=== PATIENT | female | born 1985 | race Caucasian/White ===

== ENCOUNTER 2023-04-16 12:42 | Outpatient (AMB) | payer OTHER, SELFPAY ==
[2023-04-16 12:47] VITALS: BP 144/98; PULSE 130; O2SAT 99; BMI 31.9
--- NOTE | 2023-04-16 12:47 | MHC.PC.OV ---
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 PHQ9+THRIVE Allergies No Known Allergies Allergy (Verified 04/16/23 13:07) Medication List - Last Reconciled 04/16/23 by MIGUEL ÁNGEL Mercer buspirone 10 mg PO TID clonidine HCl 0.4 mg PO BID hydroxyzine pamoate 100 mg PO BID trazodone mg PO Tobacco use date assessed: 04/16/23 Dental Screening Dental Screen Date: 04/16/23 Did you have a dental visit in the last 12 months?: No Did you have a dental problem in the last 6 months where you did not have access to dental care?: No Was dental information given to patient?: Patient has dentist HPI HPI Comments History of Present Illness Details 37-year-old female new patient presents today to [facility]. Past medical history generalized anxiety disorder, hypertension. Patient reports that she has had multiple visits to the emergency room at [facility] for new seizure activity. Patient reports last seizure activity the beginning of last month, will request emergency room records. Patient reports not currently on any medications for seizures. Will refer to Neurology for further evaluation. 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 Patient reports has been sober x1 year following rehab admission. Patient does not currently follow with MAT clinic and she is not any medications for this. Patient currently following with medication provider Cheryl Cervantes for her anxiety medications such as buspirone, clonidine, hydroxyzine and trazodone. Patient tachycardic an appointment today heart rate 130, EKG completed showed sinus tachycardia. Likely related to patient feeling anxious or being at the doctor's. FORMERLY [facility], [facility] Medical History Insomnia History of substance abuse Family History Mother No problems noted. Father Myocardial infarction Paternal Aunt Hypertension Social History (Updated 04/16/23 @ 13:17 by Ayana O'Edyta, COMB TENDER) Household Members: None Housing: House Alcohol intake: current Alcohol intake frequency: a few times a week Patient Tobacco Use Status: Current everyday Tobacco user Tobacco use type: Cigarette Cigarette Packs Per Day: 1 Current occupational status: employed Cognitive needs: No Hearing needs: No Vision needs: No Questionnaire PHQ-9 Over the last 2 weeks, how often have you been bothered by any of the following problems? 1. Little interest or pleasure in doing things: not at all 2. Feeling down, depressed, or hopeless: not at all 3. Trouble falling or staying asleep, or sleeping too much: not at all 4. Feeling tired or having little energy: not at all 5. Poor appetite or overeating: not at all 6. Feeling bad about yourself - or that you are a failure or have let yourself or your family down: not at all 7. Trouble concentrating on things, such as reading the newspaper or watching television: not at all 8. Moving or speaking so slowly that other people could have noticed. Or the opposite - being so fidgety or restless that you have been moving around a lot more than usual: not at all 9. Thoughts that you would be better off or of hurting yourself in some way: not at all Total score: 0 Depression Screening Interpretation: Negative Depression Screening Done: Yes 42051 - PHQ-9 Billing: Yes Source: Developed by Drs. Alvaro De Dios, Jaqueline Moscoso, Chau Maldonado and colleagues, with an educational skylar from [employer]. Thrive Questionnaire Date Thrive assessed: 04/16/23 I am a: Patient What is your living situation today?: I have a steady place to live Within the past 12 months, did the food you bought not last and you didn't have the money to get more?: Never true Within the past 12 months, did you worry whether your food would run out before you got money to buy more?: Never true Do you have trouble paying for medicines?: No Do you have trouble getting transportation to medical appointments?: No Do you have trouble paying your heating and electricity bill?: No Do you have trouble taking care of your child, family member or friend?: No Do you have trouble with day-to-day activities such as bathing, preparing meals, shopping, managing finances, etc.?: No Are you currently unemployed and looking for a job?: No Are you interested in more education?: No Please select the resources that you would like help with: None AUDIT C Alcohol Use Questionnaire (AUDIT-C) 1. How often do you have a drink containing alcohol?: Never Total Score: 0 LYNNE-7 AMB Questionnaire LYNNE-7 Date LYNNE - 7 assessed: 04/16/23 Feeling nervous, anxious, or on edge: 2 = More than half the days Not being able to stop or control worryin = More than half the days Worrying too much about different things: 2 = More than half the days Trouble relaxin = More than half the days Being so restless that it is hard to sit still: 2 = More than half the days Becoming easily annoyed or irritable: 2 = More than half the days Feeling afraid as if something awful might happen: 2 = More than half the days Total LYNNE-7 score (0-4 normal; 5-9 mild; 10-14 moderate; 15-21 severe): 14 Source: Developed by Drs. Alvaro De Dios, Jaqueline Moscoso, Chau Maldonado and colleagues, with an educational skylar from [employer]. LYNNE-7 Assessment Billing LYNNE-7 Assessment Tool: LYNNE-7 Assessment 13574 Physical exam (Primary Care) Vital Signs: Last Vital Signs Pulse 130 H 04/16/23 12:47 BP 144/98 H 04/16/23 12:47 Pulse Ox 99 04/16/23 12:47 Oxygen Delivery Method Room Air 04/16/23 12:47 BMI result Body Mass Index 31.9 Tobacco/Smoking Status: Tobacco use Status Tobacco use date assessed 04/16/23 04/16/23 12:56 Patient Tobacco Use Status Current everyday Tobacco 04/16/23 13:17 Tobacco use type Cigarette 04/16/23 13:17 PHQ-9: PHQ-9 Score PHQ-9: Total score 0 04/16/23 13:29 Depression Screening Interpretation: Negative Thrive Assessment: Date of Thrive Assessment Date Thrive assessed 04/16/23 04/16/23 12:56 Assessment and Plan Assessment & Plan (1) Seizure: Code(s): R56.9 - Unspecified convulsions Plan: Referral entered to Neurology for further evaluation. Will request records from emergency room visit. (2) Hypertension: Code(s): I10 - Essential (primary) hypertension Plan: Follow low-salt diet and exercise If blood pressure remains elevated at physical appointment will consider starting patient on hypertension medication. (3) Generalized anxiety disorder: Code(s): F41.1 - Generalized anxiety disorder Plan: Continue on current medications and continue to follow with medication provider. Orders: Orders Comprehensive [place]. Panel Fast Today I10 - Essential (primary) hypertension Lipid Panel Today Z13.220 - Encounter for screening for lipoid disorders TSH reflex Free T4 Today Z13.29 - Encounter for screening for other suspected endocrine disorder Complete Blood Count Auto Diff Today Z13.0 - Encounter for screening for diseases of the blood and blood-forming organs and certain disorders involving the immune mechanism Referrals Neurology Referral R56.9 - Unspecified convulsions Coding Level of Care Code New Pt Level 4 (57527) Diagnoses Seizure R56.9 Hypertension I10 Generalized anxiety disorder F41.1 Additional Codes LYNNE-7 Assessment Billing - LYNNE-7 Assessment Tool: LYNNE-7 Assessment 00812 ([id number])
== END 2023-04-16 13:47 | disposition home or self-care (01) ==
PROVIDERS: PCP Nurse Practitioner Family; Visit Provider Nurse Practitioner Family
DX: R56.9 Unspecified convulsions (principal); I10 Essential (primary) hypertension; F41.1 Generalized anxiety disorder
CPT/HCPCS: 99204

== ENCOUNTER 2023-04-17 09:19 | Outpatient (REF) | payer OTHER, SELFPAY ==
[2023-04-17 09:52] LABS: MANUAL DIFF FLAG NO
[2023-04-17 10:17] LABS: Basophils Absolute Auto 0.1 X10*3/uL (0.0-0.2); Basophils Percent Auto 1.9 % (0-2); Eosinophils Absolute Auto 0.2 X10*3/uL (0.0-0.4); Eosinophils Percent Auto 3.3 % (0-4); Hematocrit 43.5 % (37.0-47.0); Hemoglobin 14.5 g/dl (12.0-16.0); Imm Gran Abs Auto 0.01 X10*3/uL (0.00-0.03); Imm Gran Pct Auto 0.2 % (0.0-0.4); Lymphocytes Absolute Auto 2.3 X10*3/uL (1.2-4.9); Lymphocytes Percent Auto 40.3 % (20-40); Mean Corpuscular HGB Conc 33.3 g/dl (31.0-35.0); Mean Corpuscular Hemoglobin 33.3 pg (27.0-33.0); Mean Platelet Volume 9.2 fL (9.4-12.3); Monocytes Absolute Auto 0.6 X10*3/uL (0.1-1.2); Monocytes Percent Auto 10.1 % (2-11); Neutrophils Absolute Auto 2.5 x10*3/uL (2.0-8.3); Neutrophils Percent Auto 44.2 % (45-73); Platelet Count 349 X10*3/uL (160-400); Red Blood Count 4.35 X10*6/uL (4.20-5.50); Red Cell Distribution Width 12.4 % (11.0-16.0); White Blood Count 5.7 X10*3/uL (4.8-10.8)
[2023-04-17 10:49] LABS: Alanine Aminotransferase 55 U/L (0-31); Albumin Level 4.5 g/dL (3.5-5.0); Alkaline Phosphatase 87 U/L (39-117); Anion Gap 17 (12-20); Aspartate Amino Transferase 98 U/L (5-31); Bilirubin Total 0.4 mg/dL (0.0-1.0); Blood Urea Nitrogen 6 mg/dL (9-16); Calcium 9.3 mg/dL (8.4-10.2); Carbon Dioxide 23 mmol/L (22-29); Chloride 104 mmol/L (96-108); Cholesterol 307 mg/dL (<200); Estimated Glomerular Filt Rate > 60; Glucose Fasting 91 mg/dL (60-99); HDL Cholesterol 63 mg/dL (>40); LDL Cholesterol Calculated 187 mg/dL (<100); Sodium 140 mmol/L (135-145); Total Protein 7.7 g/dL (6.5-8.0); Triglycerides 285 mg/dL (<150)
[2023-04-17 11:08] LABS: TSH reflex Free T4 0.57 uIU/mL (0.32-4.0)
== END 2023-04-17 09:20 | disposition home or self-care (01) ==
LOC: HO.LAB 09:19
PROVIDERS: PCP Nurse Practitioner Family; Visit Provider Nurse Practitioner Family
DX: I10 Essential (primary) hypertension (principal); Z13.0 Encounter for screening for diseases of the blood and blood-forming organs and certain disorders involving the immune mechanism; Z13.220 Encounter for screening for lipoid disorders; Z13.29 Encounter for screening for other suspected endocrine disorder
CPT/HCPCS: 36415; 80053; 80061; 84443; 85025

== ENCOUNTER 2023-05-04 08:42 | Outpatient (REF) | payer OTHER, SELFPAY ==
--- NOTE | ~2023-05-04 | US_ITS ---
EXAMINATION: US ABDOMEN COMPLETE CLINICAL INFORMATION: Elevation of levels of liver transaminase levels. COMPARISON: None available. TECHNIQUE: Real-time imaging of the abdominal viscera. FINDINGS: PANCREAS: Normal. ABDOMINAL AORTA: The proximal, mid, and distal segments are normal in caliber. INFERIOR VENA CAVA: Visualized portions are normal. LIVER: The liver is slightly enlarged, right lobe measuring 20 cm in length. The liver contour is normal. Parenchymal echogenicity is normal. No focal hepatic lesion. There is no intrahepatic biliary duct dilatation seen. GALLBLADDER: The gallbladder is contracted and not optimally evaluated. The patient is not nothing by mouth. No gallstones are seen. COMMON BILE DUCT: Normal in caliber measuring 0.4 cm in diameter. RIGHT KIDNEY: Normal. No hydronephrosis. No renal calculi or focal parenchymal lesions. The kidney measures 12.5 cm in maximum dimension. LEFT KIDNEY: Normal. No hydronephrosis. No renal calculi or focal parenchymal lesions. The kidney measures 11.5 cm in maximum dimension. SPLEEN: Normal. The spleen measures 11.1 cm in maximum dimension. FREE FLUID: None. US/US abdomen complete IMPRESSION: Slightly enlarged liver. Contracted gallbladder, not optimally evaluated. The patient is not nothing by mouth..
== END 2023-05-04 08:43 | disposition home or self-care (01) ==
LOC: HO.HMGCX 08:42
PROVIDERS: PCP Nurse Practitioner Family; Visit Provider Nurse Practitioner Family
DX: R74.01 Elevation of levels of liver transaminase levels (principal)
CPT/HCPCS: 76700

== ENCOUNTER 2023-06-16 13:13 | Outpatient (AMB) | payer OTHER, SELFPAY ==
--- NOTE | 2023-06-16 13:17 | A.OFFPC_ITS ---
Vital Signs 06/16/23 13:19 Height 5 ft 4 in Weight 193 lb 2 oz BMI 33.1 BP 128/84 Blood Pressure Location Lt brachial Position Sitting Respiration 17 Pulse 92 Pulse Source Palpation Intake Visit Reasons: Transfer of Care from [facility] Traffic Court Magistrate Required: No Accompanied by: Self / Same As Patient Allergies No Known Allergies Allergy (Verified 06/16/23 13:41) Medication List - Last Reconciled 06/16/23 by Eulogio Hernández PA-C buspirone 10 mg PO TID clonidine HCl 0.4 mg PO BID hydroxyzine pamoate 100 mg PO BID trazodone mg PO Tobacco use date assessed: 04/16/23 Dental Screening Dental Screen Date: 06/16/23 Did you have a dental visit in the last 12 months?: No Did you have a dental problem in the last 6 months where you did not have access to dental care?: No Was dental information given to patient?: Yes HPI Transfer of Care from [facility] HPI Details Patient is a 37-year-old female here today for annual physical/transfer care visit. This is the 1st time I am meeting this 37-year-old female with a past medical history significant for hyperlipidemia, obesity, history of substance use disorder, generalized anxiety disorder, hypertension. .. LYNNE: She reports her anxiety has been fairly well controlled though still suffers with issues with sleep which causes her mood issues started today. He is speaking with a mental health therapist. .. Hyperlipidemia: Most recent fasting lipid panel showing elevated total cholesterol and LDL. Patient does have family history coronary artery disease. PLAN: will Start statin therapy .. Alcohol use disorder: She does report drinking several drinks on weekends and sometimes during days. She does have elevated liver enzymes. Ultrasound abdomen showing enlarged liver. .. Substance use disorder (in remission ): Has been sober from opiates over a year now. 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 Will get phone number to [employer] senior web developer Vaccine: Up-to-date with COVID vaccine, decline flu, pneumonia and tetanus. Laboratory Tests 04/17/23 09:51 MCV 100.0 H Creatinine 0.81 AST 98 H ALT 55 H Cholesterol 307 H LDL Cholesterol, C alc 187 H HDL Cholesterol 63 PFSH Medical History (Updated 06/16/23 @ 14:15 by Eulogio Hernández PA-C) Insomnia History of substance abuse Family History Mother No problems noted. 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 Alvaro De Dios, Jaqueline Moscoso, Chau Maldonado and colleagues, with an educational skylar from [employer]. Review of Systems Const Denies body aches, Denies chills, Denies excessive sweating, Denies fatigue, Denies fever(s) and Denies headache(s) Eyes Denies blurry vision ENT Denies dysphagia, Denies vertigo, Denies dizziness, Denies headache(s), Denies hearing loss and Denies tinnitus Card Denies chest pain, Denies chest pain with activity, Denies syncope, Denies irregular heart rhythm and Denies dyspnea Resp Denies chest congestion, Denies cough, Denies hemoptysis, Denies dyspnea and Denies wheezing GI Denies abdominal pain, Denies melena, Denies hematochezia, Denies coffee ground emesis, Denies dysphagia, Denies diarrhea, Denies nausea and Denies vomiting Denies urinary frequency, Denies dysuria, Denies urinary hesitancy and Denies urinary urgency Musc Denies arthralgias, Denies limited range of motion, Denies muscle cramps and De nies muscle weakness Skin/Breast Denies rash and Denies skin ulcer Neuro Denies Abnormal speech present, Denies confusion, Denies vertigo, Denies dizz iness, Denies syncope, Denies headache(s), Denies memory loss and Denies seizure-like activity Psych Denies anxiety, Denies confusion, Denies depression, Denies memory loss, Denies panic attacks and Denies paranoia Endo Denies excessive sweating, Denies fatigue, Denies flushing, Denies polydipsia and Denies polyuria Aller/Immun Denies wheezing Physical exam (Primary Care) Vital Signs: Last Vital Signs Pulse 92 06/16/23 13:19 Resp 17 06/16/23 13:19 BP 128/84 06/16/23 13:19 BMI result Body Mass Index 33.1 BMI Assessment/Plan discussion: High Tobacco/Smoking Status: Tobacco use Status Tobacco use date assessed 04/16/23 06/16/23 13:17 Patient Tobacco Use Status Current everyday Tobacco 06/16/23 13:49 Tobacco use type Cigarette 06/16/23 13:49 e-Cigarette/Vaping Use Former Use 06/16/23 13:49 Are you ready to quit: No Tobacco cessation counseling provided: Yes Items discussed: Nicotine replacement and QuitWorks Relapse Prevention: discussed the importance of a supportive environment, discussed extending NRT, discussed negative mood or depression after quitting, weight gain after smoking is common and discussed dietary, exercise and/or lifestyle changes Number of minutes spent counselin CPT code: 44623 - 4-10 Minutes Thrive Assessment: Date of Thrive Assessment Date Thrive assessed 04/16/23 06/16/23 13:17 Const Other: Obese General: cooperative, comfortable, no acute distress, alert and awake; No confusion Orientation/consciousness: oriented to person, oriented to place, patient oriented x3 and No confusion HENMT Head: Yes normocephalic Ears: external ears normal and TM's normal bilaterally Face and sinus: No sinus tenderness Mouth: Normal oral and palatal mucosa present and tongue normal Teeth and gingiva: dentition normal and gingiva normal Throat: Yes posterior oropharynx normal, Yes tonsils normal and Yes uvula midline Eyes Conjunctivae: conjunctivae normal Sclerae: sclerae normal Pupils: Equal, round and reactive pupils present EOM: EOMs intact bilaterally Direct Ophthalmoscopy: No no photophobia Neck Neck: Yes no lymphadenopathy, No tender and Yes no JVD Thyroid: Thyroid normal Carotids: no bruits Chest Chest palpation & inspection: no tenderness Resp Effort & Inspection: normal respiratory effort, no audible wheezes, not labored and no stridor Auscultation: no crackles, no rales, no rhonchi and no wheezes Cardio Jugular venous distension: no JVD Rate: regular rate, not bradycardic and not tachycardic Rhythm: regular rhythm Bruits: no carotid bruits Peripheral pulses: Peripheral pulses 2+ throughout GI Inspection: Yes normal to inspection, No abdominal wall ecchymosis and No visible herniation Palpation (GI): Soft to palpation, nontender, no guarding, not rigid and No hepatosplenomegaly present Auscultation: normoactive bowel sounds General: Yes no CVA tenderness Back/Spine/Pelvis Back: no CVA tenderness and No back tenderness Cervical Spine: cervical ROM normal Thoracic/Lumbar Spine: thoracic and lumbar spine normal to inspection, straight leg raise negative bilaterally, No thoraco-lumbar ROM limited and No lumbar spinal tenderness Skin Lesions: no lesions Rashes: no rashes Wounds: no wounds Neuro General: oriented to person, oriented to place, patient oriented x3, CN's II-XI intact bilaterally and No confusion Cranial nerves: Yes Equal, round and reactive pupils present and Yes Normal accommodation reflex present Cognition (Neuro): normal cognition Speech: No Abnormal speech present Gait exam (Neuro): Normal gait present Motor exam (neuro): 5/5 motor strength present throughout Extrem Right upper extremity: full ROM; no cyanosis Left upper extremity: full ROM; no cyanosis Right lower extremity: no edema Left lower extremity: no edema Psych Appearance: grossly normal Mental Status: mental status grossly normal Affect: normal affect Attitude: cooperative Thought process: Normal thought process present Assessment and Plan Assessment & Plan (1) Annual physical exam: Code(s): Z00.00 - Encounter for general adult medical examination without abnormal findings (2) Tobacco dependence: Code(s): F17.200 - Nicotine dependence, unspecified, uncomplicated Plan: Patient does understand she needs to quit smoking. Does have family history of coronary artery disease in her own cholesterol is elevated. Patient willing to try nicotine gum to help her with nicotine cravings (3) Hypertension: Code(s): I10 - Essential (primary) hypertension Qualifiers: Hypertension type: primary hypertension Qualified Code(s): I10 - Essential (primary) hypertension Plan: Patient's blood pressure acceptable today in office. She continues with clonidine 4 mg b.i.d.. She will try and from and better eating habits Advised to monitor blood pressure at home with goal blood pressure to be below 140/90 (4) Generalized anxiety disorder: Code(s): F41.1 - Generalized anxiety disorder Plan: Patient does follow a mental health therapist. Continues on buspirone with decent affect on her anxiety during the day. She still has trouble with sleep and for reports trazodone has not been affective. Will transition to Seroquel 25 mg before bed (5) Hyperlipidemia: Code(s): E78.5 - Hyperlipidemia, unspecified Qualifiers: Hyperlipidemia type: mixed hyperlipidemia Qualified Code(s): E78.2 - Mixed hyperlipidemia Plan: Patient's most recent fasting lipid panel showing elevated total cholesterol of 300 and LDL in the 170s. She does have family history coronary artery disease and currently she is smoker. She is willing to start statin therapy. Will recheck lipid panel in 2 months. Goal LDL to be below 130 (6) Insomnia: Code(s): G47.00 - Insomnia, unspecified Qualifiers: Insomnia type: primary Qualified Code(s): F51.01 - Primary insomnia Plan: As per HPI patient has been having trouble sleeping. Trazodone has not been as effective. She will like to transition to different medication. Will trial Seroquel 25 mg before bed. (7) Obese: Code(s): E66.9 - Obesity, unspecified Qualifiers: Body mass index: BMI 33.0-33.9 Obesity classification: adult class 1 (BMI 30 - 34.9) Obesity type: due to excess calories Serious obesity comorbidity presence: without serious comorbidity Qualified Code(s): E66.09 - Other obesity due to excess calories; Z68.33 - Body mass index [BMI] 33.0-33.9, adult Plan: Patient does understand her BMI is over 30 will work being more physically active and adapting to better eating habits to reduce her weight (8) History of substance abuse: Code(s): F19.11 - Other psychoactive substance abuse, in remission Plan: Has had a history of opiate dependency. Has been sober now from opiates for 2 years. Orders: Orders Lipid Panel Today E78.2 - Mixed hyperlipidemia Comprehensive [place]. Panel Fast Today I10 - Essential (primary) hypertension Complete Blood Count no Diff Today I10 - Essential (primary) hypertension Medications: New quetiapine (Seroquel) 25 mg PO BEDTIME 30 days 30 tabs 1RF F41.1 - Generalized anxiety disorder, G47.00 - Insomnia, unspecified nicotine (polacrilex) 2 mg buccal Q2H 15 days PRN 110 ea 0RF nicotine cravings F17.200 - Nicotine dependence, unspecified, uncomplicated simvastatin 20 mg PO DAILY 30 days 30 tabs 3RF E78.2 - Mixed hyperlipidemia Coding Level of Care Code Est Pt Prev Care [id number]([id number]) Diagnoses Annual physical exam Z00.00 Tobacco dependence F17.200 Primary hypertension I10 Hypertension type: primary hypertension Generalized anxiety disorder F41.1 Mixed hyperlipidemia E78.2 Hyperlipidemia type: mixed hyperlipidemia Primary insomnia F51.01 Insomnia type: primary Class 1 obesity due to excess calories without serious comorbidity with body mass index (BMI) of 33.0 to 33.9 in adult E66.09; Z68.33 Body mass index: BMI 33.0-33.9 Obesity classification: adult class 1 (BMI 30 - 34.9) Obesity type: due to excess calories Serious obesity comorbidity presence: without serious comorbidity History of substance abuse F19.11 Additional Codes Vital Signs *Quality* - CPT code: 88572 - 4-10 Minutes ([id number])
[2023-06-16 13:19] VITALS: BP 128/84; PULSE 92; RESP 17; BMI 33.1
== END 2023-06-16 14:10 | disposition home or self-care (01) ==
PROVIDERS: PCP Nurse Practitioner Family; Visit Provider Physician Assistant
DX: Z00.00 Encounter for general adult medical examination without abnormal findings (principal); F19.11 Other psychoactive substance abuse, in remission; F17.210 Nicotine dependence, cigarettes, uncomplicated; I10 Essential (primary) hypertension; F41.1 Generalized anxiety disorder; E78.2 Mixed hyperlipidemia; F51.01 Primary insomnia; E66.09 Other obesity due to excess calories; Z68.33 Body mass index [BMI] 33.0-33.9, adult
CPT/HCPCS: 99395; 99406

== ENCOUNTER 2023-06-18 12:45 | Outpatient (AMB) | payer OTHER, SELFPAY ==
--- NOTE | 2023-06-18 12:51 | MHC.OFFVIS ---
Intake Vital Signs 06/18/23 12:52 Height 5 ft 4 in Weight 197 lb 6 oz BMI 33.9 BP 142/90 H Blood Pressure Location Rt brachial Position Sitting Respiration 16 Pulse 105 H Pulse Source Pulse Oximeter Pulse Oximetry (%) 97 Oxygen Delivery Method Room Air Intake Visit Reasons: INP-Convulsions - Confirmed Intake Note: Pt presents to the office for new pt evaluation for convulsions. 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 Her first episode was 3 years ago- she was in [place] and got into the car and then was witnessed to have generalized movements, loss of awareness, consciousness. It lasted few minutes , when she woke up the ambulance were there. She was told that her episode was due to dehydration . she was tired for few days after the episode. The next event was after 6 mths while she was at work. 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 she did not go to the hospital. Her 3 rd episode was similar - was stressed. She went to [facility] ER.SHe was discharged and asked follow up with PCP> she had another episode 3 months ago- she was sitting in a chair .she bites her tongue during these episodes.she drinks alcohol - 2 drinks 3-4 times a week. she does not drive - 4-5 months ago . she has h/o of snorting HEROIN,COCAINE. she stopped 2 years ago after her first episode. she is not sure if she had used it prior to her first episode. stress and sleep deprivation triggers the episodes she denies nay fh/o seizures,denies head injury [facility] Medical History Anxiety Insomnia History of substance abuse Family History Mother No problems noted. 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 Cognitive needs: No Hearing needs: No Vision needs: No Physical Exam Vital Signs: Last Vital Signs Pulse 105 H 06/18/23 12:52 Resp 16 06/18/23 12:52 BP 142/90 H 06/18/23 12:52 Pulse Ox 97 06/18/23 12:52 Oxygen Delivery Method Room Air 06/18/23 12:52 BMI result Body Mass Index 33.9 Const General: cooperative, healthy appearing and comfortable Nutritional Appearance: average body habitus Orientation/consciousness: patient oriented x3 Limitations: no limitations Eyes Pupils: Equal, round and reactive pupils present Neuro General: patient oriented x3, gait normal, tone normal, moves all extremities and no focal motor deficits Cranial nerves: Yes Facial sensation intact/muscles of mastication intact, Yes Equal, round and reactive pupils present, Yes Bilaterally intact EOM present, Yes Nystagmus not present, Yes Normal facial strength present, Yes Midline tongue present and Yes Symmetric palate elevation present Cognition (Neuro): normal cognition Gait exam (Neuro): Normal gait present Motor exam (neuro): 5/5 motor strength present throughout and Normal motor muscle tone present throughout Deep tendon reflexes (DTR's): Right triceps reflex intensity grade: 2+, Left triceps reflex intensity grade: 2+, Rt Biceps (C5, C6): 2+, Left biceps reflex intensity grade: 2+, Right brachioradialis reflex intensity grade: 2+, Left brachioradialis reflex intensity grade: 2+, Right patellar reflex intensity grade: 2+ and Left patellar reflex intensity grade: 2+ Coordination: [id number] test normal Assessment & Plan Assessment & Plan (1) Seizure: Comment: new onset Code(s): R56.9 - Unspecified convulsions Plan I will evaluate her with MRI EEG and trial her on tegretol XR 200mg bid Seizure precautions were discussed NO DRIVING Orders: Orders MR head/brain wo con Today R56.9 - Unspecified convulsions EEG electroencephalogram Today R56.9 - Unspecified convulsions Medications: New carbamazepine ER (Tegretol XR) 200 mg PO BID 60 tabs 1RF Coding Level of Care Code New Pt Level 4 (38149) Diagnoses Seizure R56.9
[2023-06-18 12:52] VITALS: BP 142/90; PULSE 105; RESP 16; O2SAT 97; BMI 33.9
== END 2023-06-18 13:22 | disposition home or self-care (01) ==
PROVIDERS: PCP Nurse Practitioner Family; Visit Provider Psychiatry & Neurology Neurology
DX: R56.9 Unspecified convulsions (principal)
CPT/HCPCS: 99204

== ENCOUNTER → 2023-06-18 12:45 | Outpatient (BNVA) | payer OTHER, SELFPAY | PROVIDERS: PCP Nurse Practitioner Family; Visit Provider Psychiatry & Neurology Neurology | DX: R56.9 Unspecified convulsions (principal) | CPT/HCPCS: 99202 ==

== ENCOUNTER 2023-07-07 07:51 | Outpatient (REF) | payer OTHER, SELFPAY ==
--- NOTE | 2023-07-07 08:05 | EEG_ITS ---
FINDINGS: Waking background activity consists of a moderate voltage 8 to 9 hertz posterior alpha frequency intermixed anteriorly with low voltage fast frequencies. Photic stimulation is without activation. Drowsiness is characterized by diffuse slowing. No sleep stages are identified. No focal, lateralizing, or paroxysmal discharges are seen. IMPRESSION: This awake and drowsy EEG is within normal limits. MD LOCO Cochran/TESS / [phone]
== END 2023-07-07 07:52 | disposition home or self-care (01) ==
LOC: HO.NEURO 07:51
PROVIDERS: PCP Physician Assistant; Visit Provider Psychiatry & Neurology Neurology
DX: R56.9 Unspecified convulsions (principal)
CPT/HCPCS: 95816

== ENCOUNTER 2023-07-20 09:35 | Outpatient (AMB) | payer OTHER, MEDICAID, SELFPAY ==
--- NOTE | 2023-07-20 09:40 | A.OFFVIS_ITS ---
Intake Vital Signs 07/20/23 09:41 Height 5 ft 4 in Weight 196 lb 6 oz BMI 33.7 BP 128/76 Blood Pressure Location Rt brachial Position Sitting Respiration 16 Pulse 98 Pulse Source Pulse Oximeter Pulse Oximetry (%) 99 Oxygen Delivery Method Room Air Intake Visit Reasons: 1 mo f/u Convulsion - Confirmed Intake Note: Pt presents to the office for a one month follow up for s/p convulsion. Janitor And Cleaner Required: No Allergies No Known Allergies Allergy (Verified 07/20/23 09:40) Medication List - Last Reconciled 07/20/23 by Naya Marinelli MD buspirone 10 mg PO TID carbamazepine ER (Tegretol XR) 400 mg (2 x 200 mg) PO BID clonidine HCl 0.4 mg PO BID hydroxyzine pamoate 100 mg PO BID nicotine (polacrilex) 2 mg buccal Q2H PRN 15 days quetiapine (Seroquel) 25 mg PO BEDTIME 30 days simvastatin 20 mg PO DAILY 30 days HPI HPI Comments History of Present Illness Details 37y/o female comes for follow up of new onset seizures.Her EEG awake and drowsy was normal . MRI - is scheduled for next week. No driving Doing Ok on tegretol Previous history-Her first episode was 3 years ago- she was in [place] and got into the car and then was witnessed to have generalized movements, loss of awareness, consciousness. It lasted few minutes , when she woke up the ambulance were there. She was told that her episode was due to dehydration . she was tired for few days after the episode. The next event was after 6 mths while she was at work. 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 she did not go to the hospital. Her 3 rd episode was similar - was stressed. She went to [facility] ER.SHe was discharged and asked follow up with PCP> she had another episode 3 months ago- she was sitting in a chair .she bites her tongue during these episodes.she drinks alcohol - 2 drinks 3-4 times a week. she does not drive - 4-5 months ago . she has h/o of snorting HEROIN,COCAINE. she stopped 2 years ago after her first episode. she is not sure if she had used it prior to her first episode. stress and sleep deprivation triggers the episodes she denies nay fh/o seizures,denies head injury [facility] Medical History Anxiety Insomnia History of substance abuse Family History Mother No problems noted. 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 Cognitive needs: No Hearing needs: No Vision needs: No Physical Exam Vital Signs: Last Vital Signs Pulse 98 07/20/23 09:41 Resp 16 07/20/23 09:41 BP 128/76 07/20/23 09:41 Pulse Ox 99 07/20/23 09:41 Oxygen Delivery Method Room Air 07/20/23 09:41 BMI result Body Mass Index 33.7 Const General: cooperative, healthy appearing and comfortable Nutritional Appearance: average body habitus Orientation/consciousness: patient oriented x3 Limitations: no limitations Eyes Pupils: Equal, round and reactive pupils present Neuro General: patient oriented x3, gait normal, tone normal, moves all extremities and no focal motor deficits Cranial nerves: Yes Facial sensation intact/muscles of mastication intact, Yes Equal, round and reactive pupils present, Yes Bilaterally intact EOM present, Yes Nystagmus not present, Yes Normal facial strength present, Yes Midline tongue present and Yes Symmetric palate elevation present Cognition (Neuro): normal cognition Gait exam (Neuro): Normal gait present Motor exam (neuro): 5/5 motor strength present throughout and Normal motor muscle tone present throughout Coordination: [id number] test normal Assessment & Plan Assessment & Plan (1) Seizure: Comment: new onset Code(s): R56.9 - Unspecified convulsions Plan Discussed EEG results Increase tegretol XR 400mg bid. will check her CBC CMP MRI brain Seizure precautions were discussed NO DRIVING Orders: Orders 2 Complete Blood Count Auto Diff Today R56.9 - Unspecified convulsions Comprehensive Met. Panel Today R56.9 - Unspecified convulsions Medications: Changed From carbamazepine ER (Tegretol XR) 200 mg PO BID 60 tabs 1RF To carbamazepine ER (Tegretol XR) 400 mg (2 x 200 mg) PO BID 120 tabs 1RF Coding Level of Care Code Est Pt Level 4 (44187) Diagnoses Seizure R56.9
[2023-07-20 09:41] VITALS: BP 128/76; PULSE 98; RESP 16; O2SAT 99; BMI 33.7
== END 2023-07-20 09:59 | disposition home or self-care (01) ==
PROVIDERS: PCP Nurse Practitioner Family; Visit Provider Psychiatry & Neurology Neurology
DX: R56.9 Unspecified convulsions (principal)
CPT/HCPCS: 99214

== ENCOUNTER → 2023-07-20 09:35 | Outpatient (BNVA) | payer OTHER, SELFPAY | PROVIDERS: PCP Nurse Practitioner Family; Visit Provider Psychiatry & Neurology Neurology | DX: R56.9 Unspecified convulsions (principal) | CPT/HCPCS: 99212 ==

== ENCOUNTER 2023-08-17 13:49 | Outpatient (AMB) | payer OTHER, SELFPAY ==
[2023-08-17 13:53] VITALS: BP 142/96; PULSE 80; BMI 33.0
--- NOTE | 2023-08-17 13:53 | A.OFFPC_ITS ---
Vital Signs 08/17/23 13:53 Height 5 ft 4 in Weight 192 lb 6 oz BMI 33.0 BP 142/96 H Blood Pressure Location Lt brachial Position Sitting Pulse 80 Pulse Source Palpation Oxygen Delivery Method Room Air Intake Visit Reasons: f/u HTN/ HLD Intake Note: The patient is here for follow-up regarding HTN and HLD. Today, the patient has been experiencing a sore throat, cough with phlegm for the past week, and is requesting antibiotics. Environmental Engineering Aide Required: No Accompanied by: Self / Same As Patient Allergies No Known Allergies Allergy (Verified 08/17/23 14:12) Medication List - Last Reconciled 08/17/23 by Eulogio Hernández PA-C buspirone 10 mg PO TID carbamazepine ER (Tegretol XR) 400 mg (2 x 200 mg) PO BID clonidine HCl 0.4 mg PO BID hydroxyzine pamoate 100 mg PO BID nicotine (polacrilex) 2 mg buccal Q2H PRN 15 days quetiapine (Seroquel) 25 mg PO BEDTIME 30 days simvastatin 20 mg PO DAILY 30 days Tobacco use date assessed: 08/17/23 Dental Screening Dental Screen Date: 08/17/23 Did you have a dental visit in the last 12 months?: Yes Did you have a dental problem in the last 6 months where you did not have access to dental care?: No Was dental information given to patient?: Patient has dentist HPI f/u HTN/ HLD HPI Details Patient is a 37-year-old female here today for annual physical/transfer care visit. This is the 2nd time I am meeting this 37-year-old female with a past medical history significant for hyperlipidemia, obesity, history of substance use disorder, generalized anxiety disorder, hypertension. Concerns--> reports she has been suffering with a sore throat over the last 5 days. Has been taking [id number] cough cold medication without much relief. Today throat swab in office negative for strep today. .. LYNNE: She reports her anxiety has been fairly well controlled . At last visit we started Seroquel 25 mg at bedtime which has been helpful for sleep. She is interested in higher dose .. Hyperlipidemia: Unfortunately has not been able to get labs done, promises to do so in near future fasting. y .. Alcohol use disorder: She does report drinking several drinks on weekends and sometimes during days. She does have elevated liver enzymes. Ultrasound abdomen showing enlarged liver. .. Substance use disorder (in remission ): Has been sober from opiates over a year now. [facility] Medical History Anxiety Insomnia History of substance abuse Family History Mother No problems noted. 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 Alvaro De Dios, Jaqueline Moscoso, Chau Maldonado and colleagues, with an educational skylar from [email or web address]. Review of Systems Const Denies headache(s) Eyes Denies loss of vision ENT Denies vertigo, Denies dizziness, Denies headache(s) and Denies sore throat Card Denies chest pain, Denies leg edema and Denies lightheadedness Resp Denies cough, Denies hemoptysis and Denies wheezing GI Denies abdominal pain, Denies melena, Denies constipation, Denies diarrhea and Denies vomiting Denies urinary frequency, Denies dysuria and Denies urinary urgency Musc Denies arthralgias, Denies joint swelling, Denies numbness and Denies tingling Neuro Denies Abnormal speech present, Denies behavioral changes, Denies vertigo, Denies dizziness, Denies headache(s), Denies loss of vision, Denies memory loss, Denies numbness and Denies tingling Psych Denies anxiety, Denies behavioral changes, Denies depression, Denies memory loss and Denies panic attacks Juan Antonio/Lymph Denies easy bleeding and Denies easy bruising Aller/Immun Denies wheezing Physical exam (Primary Care) Vital Signs: Last Vital Signs Pulse 80 08/17/23 13:53 BP 142/96 H 08/17/23 13:53 Oxygen Delivery Method Room Air 08/17/23 13:53 BMI result Body Mass Index 33.0 Tobacco/Smoking Status: Tobacco use Status Tobacco use date assessed 08/17/23 08/17/23 13:53 Patient Tobacco Use Status Current everyday Tobacco 08/17/23 13:53 Tobacco use type Cigarette 08/17/23 13:53 e-Cigarette/Vaping Use Former Use 08/17/23 13:53 Are you ready to quit: No Tobacco cessation counseling provided: Yes Items discussed: Nicotine replacement and QuitWorks Relapse Prevention: discussed the importance of a supportive environment, discussed negative mood or depression after quitting, weight gain after smoking is common and discussed dietary, exercise and/or lifestyle changes Number of minutes spent counselin CPT code: 72448 - 4-10 Minutes Thrive Assessment: Date of Thrive Assessment Date Thrive assessed 04/16/23 08/17/23 13:53 Const Other: NOTED HOARSENESS OF VOICE General: healthy appearing, no acute distress, alert and awake Nutritional Appearance: well nourished Orientation/consciousness: oriented to person, oriented to place and oriented to time HENMT Ears: TM's normal bilaterally General nose exam: Normal nasal mucous membranes and turbinates present Eyes Conjunctivae: conjunctivae normal Sclerae: sclerae normal Pupils: Equal, round and reactive pupils present Neck Neck: Yes no lymphadenopathy and Yes no JVD Thyroid: Thyroid normal Carotids: no bruits Resp Effort & Inspection: normal respiratory effort and not tachypneic Auscultation: no crackles, no rales, no rhonchi and no wheezes Cardio Rate: regular rate Rhythm: regular rhythm Heart sounds: no murmurs and normal S1 and S2 GI Palpation (GI): Soft to palpation, nontender, no hepatomegaly and no splenomegaly Auscultation: normal bowel sounds Skin General skin exam: no rashes or lesions noted and dry skin Neuro General: oriented to person, oriented to place and oriented to time Cranial nerves: Yes Equal, round and reactive pupils present Speech: No Abnormal speech present Gait exam (Neuro): Normal gait present Motor exam (neuro): no tremor noted Extrem Right upper extremity: full ROM Left upper extremity: full ROM Right lower extremity: full ROM; no edema Left lower extremity: full ROM; no edema Psych Mental Status: mental status grossly normal Speech and movement: Normal speech and movement present Affect: normal affect Attitude: cooperative Thought process: Normal thought process present Results AMB Rapid Strep AMB Rapid Strep Negative Last Edit by HORACE Cox on 08/17/23 14:54 Results Reviewed Results Reviewed: Laboratory Last Values Strep Scn Rapid Clinic Negative 08/17/23 14:07 Assessment and Plan Assessment & Plan (1) Hypertension: Code(s): I10 - Essential (primary) hypertension Qualifiers: Hypertension type: primary hypertension Qualified Code(s): I10 - Essential (primary) hypertension Plan: Patient's blood pressure slightly elevated today in office likely due to being currently sick and cough cold [id number] medication.. She continues with clonidine 4 mg b.i.d.. She will try and from and better eating habits Advised to monitor blood pressure at home with goal blood pressure to be below 140/90 (2) Pharyngitis: Code(s): J02.9 - Acute pharyngitis, unspecified Qualifiers: Pharyngitis/tonsillitis etiology: other specified organisms Qualified Code(s): J02.8 - Acute pharyngitis due to other specified organisms Plan: Likely viral. Will supply patient with prednisone taper and antibiotic to take if symptoms worsen. Today's throat swab was negative for strep A (3) Tobacco dependence: Code(s): F17.200 - Nicotine dependence, unspecified, uncomplicated Plan: Patient does understand she needs to quit smoking. Does have family history of coronary artery disease in her own cholesterol is elevated. Patient willing to try nicotine gum to help her with nicotine cravings (4) Generalized anxiety disorder: Code(s): F41.1 - Generalized anxiety disorder Plan: Patient does follow a mental health therapist. Continues on buspirone with decent affect on her anxiety during the day. She still has trouble with sleep and for reports trazodone has not been affective. Will increase her Seroquel to 50 mg before bed for better effect on her sleep. (5) Hyperlipidemia: Code(s): E78.5 - Hyperlipidemia, unspecified Qualifiers: Hyperlipidemia type: mixed hyperlipidemia Qualified Code(s): E78.2 - Mixed hyperlipidemia Plan: Patient's most recent fasting lipid panel showing elevated total cholesterol of 300 and LDL in the 170s. She does have family history coronary artery disease and currently she is smoker. She has started low-dose statin. Goal LDL to be below 130 (6) Insomnia: Code(s): G47.00 - Insomnia, unspecified Qualifiers: Insomnia type: primary Qualified Code(s): F51.01 - Primary insomnia Plan: As per HPI patient has been having trouble sleeping. Has started Seroquel 25 mg which has been effective on helping her sleep on most nights. She is interested in increasing dose to 50 mg for better effect.. (7) Obese: Code(s): E66.9 - Obesity, unspecified Qualifiers: Body mass index: BMI 33.0-33.9 Obesity classification: adult class 1 (BMI 30 - 34.9) Obesity type: due to excess calories Serious obesity comorbidity presence: without serious comorbidity Qualified Code(s): E66.09 - Other obesity due to excess calories; Z68.33 - Body mass index [BMI] 33.0-33.9, adult Plan: Patient does understand her BMI is over 30 will work being more physically active and adapting to better eating habits to reduce her weight (8) History of substance abuse: Code(s): F19.11 - Other psychoactive substance abuse, in remission Plan: Has had a history of opiate dependency. Has been sober now from opiates for 2 years. (9) Bronchitis: Code(s): J40 - Bronchitis, not specified as acute or chronic Plan: As per HPI has been suffering with a cough, sore throat and hoarseness of voice over the last week. Supply with prednisone taper and antibiotic to take if symptoms do not start to self resolve. Orders: Orders AMB Rapid Strep Screen Today J02.9 - Acute pharyngitis, unspecified Medications: New amoxicillin 875 mg PO BID 5 days 10 tabs 0RF J40 - Bronchitis, not specified as acute or chronic quetiapine (Seroquel) 50 mg PO BEDTIME 30 days 30 tabs 3RF F51.01 - Primary insomnia prednisone Take 3 tablets x2 days, 2 tablets x2 days, 1 tablet x2 days 10 mg PO DIRECTED 6 days 12 tabs 0RF J40 - Bronchitis, not specified as acute or chronic Discontinued quetiapine (Seroquel) Discontinued Reason: Doctor's Order 25 mg PO BEDTIME 30 days 30 tabs 3RF F41.1 - Generalized anxiety disorder, G47.00 - Insomnia, unspecified Coding Level of Care Code Est Pt Level 4 (59746) Diagnoses Primary hypertension I10 Hypertension type: primary hypertension Pharyngitis due to other organism J02.8 Pharyngitis/tonsillitis etiology: other specified organisms Tobacco dependence F17.200 Generalized anxiety disorder F41.1 Mixed hyperlipidemia E78.2 Hyperlipidemia type: mixed hyperlipidemia Primary insomnia F51.01 Insomnia type: primary Class 1 obesity due to excess calories without serious comorbidity with body mass index (BMI) of 33.0 to 33.9 in adult E66.09; Z68.33 Body mass index: BMI 33.0-33.9 Obesity classification: adult class 1 (BMI 30 - 34.9) Obesity type: due to excess calories Serious obesity comorbidity presence: without serious comorbidity History of substance abuse F19.11 Bronchitis J40 Additional Codes Vital Signs *Quality* - CPT code: 60314 - 4-10 Minutes ([id number])
== END 2023-08-17 14:22 | disposition home or self-care (01) ==
PROVIDERS: PCP Nurse Practitioner Family; Visit Provider Physician Assistant
DX: I10 Essential (primary) hypertension (principal); J02.9 Acute pharyngitis, unspecified; J02.8 Acute pharyngitis due to other specified organisms; F19.11 Other psychoactive substance abuse, in remission; F17.210 Nicotine dependence, cigarettes, uncomplicated; F41.1 Generalized anxiety disorder; E78.2 Mixed hyperlipidemia; F51.01 Primary insomnia; E66.09 Other obesity due to excess calories; Z68.33 Body mass index [BMI] 33.0-33.9, adult; J40 Bronchitis, not specified as acute or chronic
CPT/HCPCS: 87880; 99214

== ENCOUNTER 2023-08-18 07:31 | Outpatient (REF) | payer OTHER, SELFPAY ==
--- NOTE | ~2023-08-18 | MR_ITS ---
EXAMINATION: MR BRAIN WITHOUT CONTRAST CLINICAL INFORMATION: 37-year-old with unspecified convulsions. Self-reported seizures x1 year on medication. Right eye swelling. COMPARISON: None available. TECHNIQUE: MRI of the brain was obtained using routine sequences without contrast. FINDINGS: BRAIN VOLUME: Within normal limits within the limitations of qualitative assessment. STRUCTURAL: No malformations. BRAIN AND MENINGES: DWI sequence demonstrates no restricted diffusion to suggest acute or subacute cerebral ischemia. The brain is normal in morphology, with a normal appearance to the mesiotemporal lobe structures, which appear symmetric. Normal brain parenchymal signal intensity. Gradient refocused imaging demonstrates no abnormal susceptibility-weighted signal loss to suggest hemorrhage, hemosiderin staining or abnormal mineralization. Fuentes-white matter interface is preserved. No extra-axial fluid collections, space-occupying process or mass effect. Scattered perivascular spaces within the white matter of both cerebral hemispheres are also noted which are within normal range. VENTRICLES AND SUBARACHNOID SPACES: The ventricular system and subarachnoid spaces are within normal range; there is no hydrocephalus. ORBITAL STRUCTURES: The orbital segments of the optic nerves are somewhat diminutive in size bilaterally. Suggest correlation with ophthalmoscopic exam. Otherwise the visualized orbital soft tissues appear grossly unremarkable within the limitations of the exam. VASCULAR: Signal voids are noted in the visualized major intracranial vessels. OSSEOUS STRUCTURES, SINUSES/MASTOIDS, EXTRACRANIAL SOFT TISSUES: Unremarkable. MR/MR head/brain wo con IMPRESSION: 1. Normal noncontrast MRI of the brain. No epileptogenic lesion identified. 2. Somewhat diminutive size of the orbital segments of the optic nerves bilaterally. Suggest correlation with ophthalmoscopic exam to evaluate for possible optic nerve atrophy.
[2023-08-18 07:26] LABS: Hematocrit 36.6 % (37.0-47.0); Hemoglobin 12.3 g/dl (12.0-16.0); Mean Corpuscular HGB Conc 33.6 g/dl (31.0-35.0); Mean Corpuscular Hemoglobin 33.7 pg (27.0-33.0); Mean Corpuscular Volume 100.3 fL (80.0-98.0); Platelet Count 203 X10*3/uL (160-400); Red Blood Count 3.65 X10*6/uL (4.20-5.50); Red Cell Distribution Width 14.6 % (11.0-16.0); White Blood Count 3.9 X10*3/uL (4.8-10.8)
[2023-08-18 07:43] LABS: Alanine Aminotransferase 226 U/L (0-31); Alkaline Phosphatase 140 U/L (39-117); Anion Gap 13 (12-20); Aspartate Amino Transferase 301 U/L (5-31); Bilirubin Total 0.7 mg/dL (0.0-1.0); Blood Urea Nitrogen 6 mg/dL (9-16); Calcium 9.6 mg/dL (8.4-10.2); Carbon Dioxide 26 mmol/L (22-29); Chloride 105 mmol/L (96-108); Cholesterol 284 mg/dL (<200); Estimated Glomerular Filt Rate > 60; Glucose Fasting 99 mg/dL (60-99); HDL Cholesterol 81 mg/dL (>40); LDL Cholesterol Calculated 184 mg/dL (<100); Potassium 4.7 mmol/L (3.3-5.1); Sodium 139 mmol/L (135-145); Total Protein 7.1 g/dL (6.5-8.0); Triglycerides 98 mg/dL (<150)
== END 2023-08-18 07:32 | disposition home or self-care (01) ==
LOC: HO.MRI 07:31
PROVIDERS: Physician Assistant; PCP Nurse Practitioner Family; Visit Provider Psychiatry & Neurology Neurology
DX: R56.9 Unspecified convulsions (principal); E78.2 Mixed hyperlipidemia; I10 Essential (primary) hypertension
CPT/HCPCS: 36415; 70551; 80053; 80061; 85027

== ENCOUNTER 2023-10-21 08:44 | Outpatient (AMB) | payer OTHER, SELFPAY ==
--- NOTE | 2023-10-21 08:51 | MHC.OFFVIS ---
Vital Signs 10/21/23 08:52 Height 5 ft 4 in Weight 201 lb 4 oz BMI 34.5 BP 112/62 Blood Pressure Location Rt brachial Position Sitting Respiration 16 Pulse 86 Pulse Source Pulse Oximeter Pulse Oximetry (%) 99 Oxygen Delivery Method Room Air Intake Visit Reasons: 3 mo fl-Unable to LVM Intake Note: Pt presents for 3 month follow up for seizures. Foot Miter Operator Required: No Allergies No Known Allergies Allergy (Verified 10/21/23 08:52) Medication List - Last Reconciled 10/21/23 by Naya Marinelli MD amoxicillin 875 mg PO BID 5 days buspirone 10 mg PO TID clonidine HCl 0.4 mg PO BID hydroxyzine pamoate 100 mg PO BID levetiracetam (Keppra) 500 mg PO BID nicotine (polacrilex) 2 mg buccal Q2H PRN 15 days prednisone 10 mg PO DIRECTED 6 days quetiapine (Seroquel) 50 mg PO BEDTIME 30 days simvastatin 20 mg PO DAILY HPI Comments Details: 38y/o female comes for follow up of new onset seizures.Her EEG awake and drowsy was normal . MRI - optic nerve smaller antonietta otherwise unremarkable I switched her to levetiracetam 2 weeks ago due to abnormal LFTs.No seizures since then and is tolerating No driving she went to [facility] and is starting on vivitrol she stopped alcohol consumption 3 weeks ago Previous history-Her first episode was 3 years ago- she was in [place] and got into the car and then was witnessed to have generalized movements, loss of awareness, consciousness. It lasted few minutes , when she woke up the ambulance were there. She was told that her episode was due to dehydration . she was tired for few days after the episode. The next event was after 6 mths while she was at work. 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 she did not go to the hospital. Her 3 rd episode was similar - was stressed. She went to [facility] ER.SHe was discharged and asked follow up with PCP> she had another episode 3 months ago- she was sitting in a chair .she bites her tongue during these episodes.she drinks alcohol - 2 drinks 3-4 times a week. she does not drive - 4-5 months ago . she has h/o of snorting HEROIN,COCAINE. she stopped 2 years ago after her first episode. she is not sure if she had used it prior to her first episode. stress and sleep deprivation triggers the episodes she denies any fh/o seizures,denies head injury [facility] Medical History Anxiety Insomnia History of substance abuse Family History Mother No problems noted. 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 Cognitive needs: No Hearing needs: No Vision needs: No Physical Exam Vital Signs: Last Vital Signs Pulse 86 10/21/23 08:52 Resp 16 10/21/23 08:52 BP 112/62 10/21/23 08:52 Pulse Ox 99 10/21/23 08:52 Oxygen Delivery Method Room Air 10/21/23 08:52 BMI result Body Mass Index 34.5 Const General: cooperative, healthy appearing and comfortable Nutritional Appearance: average body habitus Orientation/consciousness: patient oriented x3 Limitations: no limitations Eyes Pupils: Equal, round and reactive pupils present Neuro General: patient oriented x3, gait normal, tone normal, moves all extremities and no focal motor deficits Cranial nerves: Yes Facial sensation intact/muscles of mastication intact, Yes Equal, round and reactive pupils present, Yes Bilaterally intact EOM present, Yes Nystagmus not present, Yes Normal facial strength present, Yes Midline tongue present and Yes Symmetric palate elevation present Cognition (Neuro): normal cognition Gait exam (Neuro): Normal gait present Motor exam (neuro): 5/5 motor strength present throughout and Normal motor muscle tone present throughout Coordination: [id number] test normal Assessment & Plan Assessment & Plan (1) Seizure: Comment: new onset Code(s): R56.9 - Unspecified convulsions Category: Medical Plan Discussed EEG results Continue keppra 500mg bid MRI brain reviewed- f/o packing line operator for optic atrophy CBC LFTs in 1 month Seizure precautions were discussed NO DRIVING Orders: Orders Complete Blood Count Auto Diff Today R56.9 - Unspecified convulsions Comprehensive Met. Panel Today R56.9 - Unspecified convulsions Coding Level of Care Code Est Pt Level 4 (26602) Diagnoses Seizure R56.9
[2023-10-21 08:52] VITALS: BP 112/62; PULSE 86; RESP 16; O2SAT 99; BMI 34.5
== END 2023-10-21 09:40 | disposition home or self-care (01) ==
PROVIDERS: PCP Nurse Practitioner Family; Visit Provider Psychiatry & Neurology Neurology
DX: R56.9 Unspecified convulsions (principal)
CPT/HCPCS: 99214

== ENCOUNTER → 2023-10-21 08:44 | Outpatient (BNVA) | payer OTHER, SELFPAY | PROVIDERS: PCP Nurse Practitioner Family; Visit Provider Psychiatry & Neurology Neurology | DX: R56.9 Unspecified convulsions (principal) | CPT/HCPCS: 99212 ==

== ENCOUNTER 2023-12-09 10:09 | Outpatient (REF) | payer OTHER, SELFPAY ==
[2023-12-09 10:22] LABS: MANUAL DIFF FLAG NO
[2023-12-09 11:07] LABS: Basophils Absolute Auto 0.1 X10*3/uL (0.0-0.2); Basophils Percent Auto 1.1 % (0-2); Eosinophils Absolute Auto 0.2 X10*3/uL (0.0-0.4); Eosinophils Percent Auto 3.2 % (0-4); Hematocrit 36.9 % (37.0-47.0); Hemoglobin 12.3 g/dl (12.0-16.0); Imm Gran Abs Auto 0.04 X10*3/uL (0.00-0.03); Imm Gran Pct Auto 0.6 % (0.0-0.4); Lymphocytes Absolute Auto 1.9 X10*3/uL (1.2-4.9); Lymphocytes Percent Auto 28.7 % (20-40); Mean Corpuscular HGB Conc 33.3 g/dl (31.0-35.0); Mean Corpuscular Volume 98.9 fL (80.0-98.0); Mean Platelet Volume 9.9 fL (9.4-12.3); Monocytes Absolute Auto 0.8 X10*3/uL (0.1-1.2); Monocytes Percent Auto 12.4 % (2-11); Neutrophils Absolute Auto 3.5 x10*3/uL (2.0-8.3); Platelet Count 322 X10*3/uL (160-400); Red Blood Count 3.73 X10*6/uL (4.20-5.50); Red Cell Distribution Width 13.4 % (11.0-16.0); White Blood Count 6.6 X10*3/uL (4.8-10.8)
[2023-12-09 11:28] LABS: Alanine Aminotransferase 32 U/L (0-31); Albumin Level 4.3 g/dL (3.5-5.0); Alkaline Phosphatase 74 U/L (39-117); Anion Gap 14 (12-20); Aspartate Amino Transferase 42 U/L (5-31); Bilirubin Total 0.4 mg/dL (0.0-1.0); Blood Urea Nitrogen 8 mg/dL (9-16); Calcium 9.2 mg/dL (8.4-10.2); Carbon Dioxide 23 mmol/L (22-29); Chloride 99 mmol/L (96-108); Estimated Glomerular Filt Rate > 60; Glucose Random 94 mg/dL (60-115); Potassium 3.7 mmol/L (3.3-5.1); Sodium 132 mmol/L (135-145)
== END 2023-12-09 10:10 | disposition home or self-care (01) ==
LOC: HO.LAB 10:09
PROVIDERS: PCP Physician Assistant; Visit Provider Psychiatry & Neurology Neurology
DX: R56.9 Unspecified convulsions (principal)
CPT/HCPCS: 36415; 80053; 85025

== ENCOUNTER 2024-08-09 12:51 | Outpatient (REF) | payer OTHER, SELFPAY ==
--- NOTE | ~2024-08-09 | XR_ITS ---
CLINICAL HISTORY: J40 - Bronchitis, not specified as acute or chronic 2 view chest x-ray Comparison: None Findings: The lungs are clear. Normal size heart. No acute fracture. IMPRESSION: 1. No acute findings. This document has been electronically signed by: Pedro Hernandez MD on 08/10/2024 04:15:46
[2024-08-09 13:43] LABS: Influenza A PCR NEGATIVE (Negative); Influenza B PCR POSITIVE (Negative); Resp Syncy Virus RNA Qual PCR NEGATIVE (Negative); SARS COV2 PCR INHOUSE NEGATIVE (Negative)
== END 2024-08-09 12:52 | disposition home or self-care (01) ==
LOC: HO.LAB 12:51
PROVIDERS: PCP Physician Assistant; Visit Provider Physician Assistant
DX: J40 Bronchitis, not specified as acute or chronic (principal)
CPT/HCPCS: 0241U; 71046

== ENCOUNTER → 2024-08-09 13:03 | Outpatient (BNV) | payer OTHER, SELFPAY | PROVIDERS: PCP Physician Assistant; Visit Provider Radiology Diagnostic Radiology | DX: J40 Bronchitis, not specified as acute or chronic (principal) | CPT/HCPCS: 71046 ==

== ENCOUNTER 2024-08-17 10:50 | Outpatient (AMB) | payer OTHER, SELFPAY ==
--- NOTE | 2024-08-17 10:52 | MHC.PC.OV ---
Vital Signs 08/17/24 10:54 Height 5 ft 4 in Weight 190 lb BMI 32.6 BP 122/78 Blood Pressure Location Lt brachial Position Sitting Pulse 93 Pulse Source Pulse Oximeter Temp Source Temporal Artery Scan Pulse Oximetry (%) 96 Oxygen Delivery Method Room Air Intake Visit Reasons: PE- NEEDS PHQ9 + THRIVE Peer Support Specialist Required: No Accompanied by: Self / Same As Patient Allergies No Known Allergies Allergy (Verified 08/17/24 11:08) Medication List - Last Reconciled 08/17/24 by Eulogio Hernández PA-C buspirone 10 mg PO TID 90 days clonidine HCl 0.4 mg PO BID epinephrine (EpiPen 2-Mike) 0.3 mg (0.3 mL) IM Q4H PRN hydroxyzine pamoate 100 mg (2 x 50 mg) PO BID 90 days nicotine (polacrilex) 2 mg buccal Q2H PRN 15 days quetiapine (Seroquel) 50 mg PO BEDTIME 30 days simvastatin 20 mg PO DAILY Tobacco use date assessed: 08/17/24 Dental Screening Dental Screen Date: 08/17/24 Did you have a dental visit in the last 12 months?: Yes Did you have a dental problem in the last 6 months where you did not have access to dental care?: No Was dental information given to patient?: Patient has dentist HPI PE- NEEDS PHQ9 + THRIVE HPI Details Patient is a 38-year-old female here today for annual physical/transfer care visit. Patient has a past medical history significant for hyperlipidemia, obesity, history of substance use disorder, elevated liver enzymes, generalized anxiety disorder, hypertension. Concerns--> recently had a bout of flu B. chest x-ray done without any evidence of pneumonia. Most recent brain MRI showing atrophic bilateral optic nerves. She does report often having a squint to readjust her vision. She is interested in seeing an verifier operator. .. LYNNE: She currently takes BuSpar, Clonidine, and Hydroxyzine, and seeks additional medication for acute anxiety episodes At last visit we started Seroquel 25 mg at bedtime which has been helpful for sleep. .. Hyperlipidemia: Has been on simvastatin 20 mg for quite some time, has been out of the medication due to not having refills. Willing to restart simvastatin. Most recent lipid panel showing elevated total cholesterol and LDL. .. Alcohol use disorder: She has reduced her alcohol intake quite a bit. She does have elevated liver enzymes. Ultrasound abdomen showing enlarged liver. .. Substance use disorder (in remission ): Has been sober from opiates over a year now. She does admit to still drinking alcohol though much less. Vaccine: Need Tdap declines today, TECHNICAL TRAINER: Willing to be referred to senior insight manager international for Pap screening [facility] Medical History Anxiety Insomnia History of substance abuse Family History Mother No problems noted. 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 1. Little interest or pleasure in doing things: several days 2. Feeling down, depressed, or hopeless: several days 3. Trouble falling or staying asleep, or sleeping too much: several days 4. Feeling tired or having little energy: several days 5. Poor appetite or overeating: several days 6. Feeling bad about yourself - or that you are a failure or have let yourself or your family down: several days 7. Trouble concentrating on things, such as reading the newspaper or watching television: several days 8. Moving or speaking so slowly that other people could have noticed. Or the opposite - being so fidgety or restless that you have been moving around a lot more than usual: not at all 9. Thoughts that you would be better off or of hurting yourself in some way: not at all Total score: 7 Depression Screening Interpretation: Positive Depression Screening Follow-up: Existing condition Depression Screening Done: Yes 03148 - PHQ-9 Billing: Yes Source: Developed by Drs. Alvaro De Dios, Jaqueline Moscoso, Chau Maldonado and colleagues, with an educational skylar from [employer]. Thrive Questionnaire Date Thrive assessed: 08/17/24 I am a: Patient What is your living situation today?: I choose not to answer this question Within the past 12 months, did the food you bought not last and you didn't have the money to get more?: Sometimes True Within the past 12 months, did you worry whether your food would run out before you got money to buy more?: Sometimes True Do you have trouble paying for medicines?: No Do you have trouble getting transportation to medical appointments?: Yes Do you have trouble paying your heating and electricity bill?: No Do you have trouble taking care of your child, family member or friend?: No Do you have trouble with day-to-day activities such as bathing, preparing meals, shopping, managing finances, etc.?: No Are you currently unemployed and looking for a job?: Yes Are you interested in more education?: No Please select the resources that you would like help with: None Currently or been in a relationship where the following occur: No concerns reported THRIVE Score: 3 AUDIT C Alcohol Use Questionnaire (AUDIT-C) 1. How often do you have a drink containing alcohol?: Monthly or less 2. How many drinks containing alcohol do you have on a typical day when you are drinking?: 1 or 2 3. How often do you have six or more drinks on one occasion?: Less than monthly Total Score: 2 LYNNE-7 AMB Questionnaire LYNNE-7 Date LYNNE - 7 assessed: 08/17/24 Feeling nervous, anxious, or on edge: 2 = More than half the days Not being able to stop or control worryin = Several days Worrying too much about different things: 1 = Several days Trouble relaxin = Several days Being so restless that it is hard to sit still: 1 = Several days Becoming easily annoyed or irritable: 1 = Several days Feeling afraid as if something awful might happen: 1 = Several days Total LYNNE-7 score (0-4 normal; 5-9 mild; 10-14 moderate; 15-21 severe): 8 Source: Developed by Jaqueline Kay Kurt Kroenke and colleagues, with an educational skylar from [employer]. LYNNE-7 Assessment Billing LYNNE-7 Assessment Tool: LYNNE-7 Assessment 67503 Physical exam (Primary Care) Vital Signs: Last Vital Signs Pulse 93 08/17/24 10:54 BP 122/78 08/17/24 10:54 Pulse Ox 96 08/17/24 10:54 Oxygen Delivery Method Room Air 08/17/24 10:54 BMI result Body Mass Index 32.6 Tobacco/Smoking Status: Tobacco use Status Tobacco use date assessed 08/17/24 08/17/24 10:55 Patient Tobacco Use Status Current everyday Tobacco 08/17/24 11:11 Tobacco use type Cigarette 08/17/24 11:11 e-Cigarette/Vaping Use Former Use 08/17/24 11:11 PHQ-9: PHQ-9 Score PHQ-9: Total score 7 08/17/24 11:15 Depression Screening Interpretation: Positive Depression Screening Follow-up: Existing condition Thrive Assessment: Date of Thrive Assessment Date Thrive assessed 08/17/24 08/17/24 10:55 Currently or been in a relationship where the following occur: No concerns reported Office Procedures Flu Questionnaire Does the patient have a severe egg allergy?: No Does the patient have severe life threatening allergies?: No Does the patient have a fever or illness today?: No Has the patient ever had Guillain-Henrietta Syndrome?: No Has the patient ever had any past reaction to a flu shot?: No Immunizations Fluarix Triv [id number] (PF) 45 mcg (15 mcg x 3)/0.5 mL IM syringe Performing Provider: Eulogio Hernández PA-C [facility] Documented (not given) by: HORACE Cox on 08/17/24 10:58 Reason Not Given: Patient Refused Coding Level of Care Code Est Pt Prev Care 18-39y(38966) Diagnoses Annual physical exam Z00.00 Primary hypertension I10 Hypertension type: primary hypertension Mixed hyperlipidemia E78.2 Hyperlipidemia type: mixed hyperlipidemia Tobacco dependence F17.200 Generalized anxiety disorder F41.1 Optic nerve atrophy, 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 Cervical cancer screening Z12.4 History of substance abuse F19.11 Class 1 obesity E66.811 Additional Codes LYNNE-7 Assessment Billing - LYNNE-7 Assessment Tool: LYNNE-7 Assessment [id number] ([id number]) PHQ-9 - 59948 - PHQ-9 Billing: Yes ([id number]) Assessment & Plan Assessment & Plan (1) Annual physical exam: Code(s): Z00.00 - Encounter for general adult medical examination without abnormal findings Category: Medical Plan: As per HPI (2) Hypertension: Code(s): I10 - Essential (primary) hypertension Category: Medical Qualifiers: Hypertension type: primary hypertension Qualified Code(s): I10 - Essential (primary) hypertension Plan: Patient's blood pressure acceptable today in office. She has been able to manage her blood pressure with diet and exercise along with use of her clonidine. Goal blood pressure to be below 140/90 (3) Hyperlipidemia: Code(s): E78.5 - Hyperlipidemia, unspecified Category: Medical Qualifiers: Hyperlipidemia type: mixed hyperlipidemia Qualified Code(s): E78.2 - Mixed hyperlipidemia Plan: Patient's most recent lipid panel showing elevated total cholesterol and LDL. She was on simvastatin though has not gotten any refills. Will restart simvastatin 20 mg with goal total cholesterol to be below 200 and LDL to be below 160 (4) Tobacco dependence: Code(s): F17.200 - Nicotine dependence, unspecified, uncomplicated Category: Medical Plan: Patient continues to smoke about a pack a day. She does have nicotine gum available to her. She has found it very difficult to quit smoking (5) Generalized anxiety disorder: Code(s): F41.1 - Generalized anxiety disorder Category: Medical Plan: Patient's LYNNE-7 score positive for anxiety which has been existing condition for her. She continues with multiple mental health medications. She reports having very bad anxiety particularly at night that keeps her up. She is interested in as needed medication for panic disorder. Will try lorazepam 0.5 mg for emergency use only.. We did discuss perhaps starting mental health therapy and she is still considering. (6) Optic nerve atrophy, bilateral: Code(s): H47.20 - Unspecified optic atrophy Category: Medical Plan: Most recent brain MRI showing atrophic optic nerves. She would like to see an eye doctor for evaluation. She reports she is often squinting and having blurred vision. (7) Cervical cancer screening: Code(s): Z12.4 - Encounter for screening for malignant neoplasm of cervix Category: Medical Plan: Will refer to senior insight manager international for Pap screening (8) History of substance abuse: Code(s): F19.11 - Other psychoactive substance abuse, in remission Category: Medical Plan: Has been sober from illicit drug use for several years now. (9) Class 1 obesity: Code(s): E66.811 - Obesity, class 1 Category: Medical Plan: Patient does understand her BMI is over 30 will work on being more physically active and adapting to better eating habits to reduce her weight. Orders: Orders Lipid Panel Today E78.2 - Mixed hyperlipidemia Comprehensive [place]. Panel Fast Today I10 - Essential (primary) hypertension Influenza 1341-1417 Immunization Today Z23 - Encounter for immunization Microalbumin, Random (w Creat) Today I10 - Essential (primary) hypertension Complete Blood Count no Diff Today I10 - Essential (primary) hypertension Referrals Ophthalmology Referral H47.20 - Unspecified optic atrophy SIGHT EFFECTS SPECIALIST Referral Z12.4 - Encounter for screening for malignant neoplasm of cervix Medications: New lorazepam FOR EMERGENCY USE ONLY 0.5 mg PO DAILY 7 days PRN 7 tabs 0RF anxiety F41.9 - Anxiety disorder, unspecified Refilled simvastatin 20 mg PO DAILY 90 tabs 1RF E78.2 - Mixed hyperlipidemia Patient Instructions: Goal: Blood pressure to remain below 140/90 Barriers: Adherence to physical activity and healthy eating
[2024-08-17 10:54] VITALS: BP 122/78; PULSE 93; O2SAT 96; BMI 32.6
== END 2024-08-17 11:26 | disposition home or self-care (01) ==
PROVIDERS: PCP Physician Assistant; Visit Provider Physician Assistant
DX: Z00.00 Encounter for general adult medical examination without abnormal findings (principal); I10 Essential (primary) hypertension; E78.2 Mixed hyperlipidemia; F17.200 Nicotine dependence, unspecified, uncomplicated; F41.1 Generalized anxiety disorder; H47.20 Unspecified optic atrophy; Z12.4 Encounter for screening for malignant neoplasm of cervix; F19.11 Other psychoactive substance abuse, in remission; E66.811 Obesity, class 1; Z23 Encounter for immunization

== ENCOUNTER → 2024-08-17 10:50 | Outpatient (BNVA) | payer OTHER, SELFPAY | PROVIDERS: PCP Physician Assistant; Visit Provider Physician Assistant | DX: Z00.00 Encounter for general adult medical examination without abnormal findings (principal); E78.2 Mixed hyperlipidemia; I10 Essential (primary) hypertension; F41.1 Generalized anxiety disorder; H47.20 Unspecified optic atrophy; F19.11 Other psychoactive substance abuse, in remission; E66.811 Obesity, class 1; F17.200 Nicotine dependence, unspecified, uncomplicated; Z71.6 Tobacco abuse counseling | CPT/HCPCS: 90471; 96127; 99395 ==